=== PATIENT | male | born 2000 | race Two or more races ===

== ENCOUNTER 2024-11-03 00:26 | Emergency (ER) | payer BC, OTHER ==
[~2024-11-03] VITALS: Ht 177.8 cm; Wt 88.2 kg
[2024-11-03 00:58] VITALS: TEMP 97.3
--- NOTE | 2024-11-03 02:11 | DVH ---
CLINICAL INDICATION: RULE OUT FOREIGN BODY PLANTAR ASPECT TECHNIQUE: XY L FOOT 3 VIEW XRAY Comparison: None FINDINGS/IMPRESSION: : There is no evidence of acute fracture or dislocation. Moderate plantar soft tissue swelling noted subjacent to the metatarsals without evidence of retained radiodense foreign body. Soft tissues are otherwise unremarkable.
[2024-11-03] MEDS ORDERED: IBUP-1456 PO (02:25)
[2024-11-03] MEDS ORDERED: AUG875T PO (02:25)
--- NOTE | 2024-11-03 02:25 | ED.PDOC ---
History of Present Illness(SKN HPI Comments s C/C of possible toothpick, or stick in left foot. Pt states he was walking barefoot outside, and had an object lodged into LEFT foot. Noted abrasion and foreign body upon palpation. No active bleeding. VSS. NKDA. Pt A&O x4. Pt able to ambulate with slow steady gait. Chief Complaint: Foreign Body Time Seen by MD: 00:56 History of Present Illness: Nurses Notes, Medications, Allergies Allergies: Coded Allergies: NO KNOWN ALLERGIES (Unverified , 11/03/24) Home Meds Active Scripts Ibuprofen (Ibuprofen) 800 Mg Tab, 800 MG PO Q8HP PRN for 5 Days, #15 TAB Prov:CHICAFREIDAK CARPET LAYER HELPER 11/03/24 Amoxicillin & Pot Clavulanate (AUGMENTIN TABLET) 875 Mg Tb, 875 MG PO BID for 5 Days, #10 TAB Prov:CHICAGABBI Ray CARPET LAYER HELPER 11/03/24 Information Source: Patient Mode of Arrival: Ambulatory Past Medical History PAST MEDICAL HISTORY: Denies Surgical History: Denies all surgeries Family History Family History: Reviewed,noncontributory to illness, No family hx of Cancer, No family hx of DM, No family hx of Heart betty, No family hx of HTN, No family hx ofKidney betty, No family hx of Liver betty, No family hx of Lung betty, No family hx of Stroke Social History Smoker: Non-Smoker Alcohol: Denies ETOH Use Drugs: Denies Drug Use Constitutional: denies: chills, diaphoresis, fatigue, fever, malaise, sweats, weakness, others EENTM: denies: blurred vision, double vision, ear bleeding, ear discharge, ear drainage, ear pain, ear ringing, eye pain, eye redness, hearing loss, mouth pain, mouth swelling, nasal discharge, nose bleeding, nose congestion, nose pain, photophobia, tearing, throat pain, throat swelling, voice changes, others Respiratory: denies: cough, hemoptysis, orthopnea, SOB at rest, shortness of breath, SOB with excertion, stridor, wheezing, others Cardiovascular: denies: chest pain, dizzy spells, diaphoresis, Dyspnea on exertion, edema, irregular heart beat, left arm pain, lightheadedness, palpitations, PND, syncope, others Gastrointestinal: denies: abdomen distended, abdominal pain, blood streaked bowels, constipated, diarrhea, dysphagia, difficulty swallowing, hematemesis, melena, nausea, poor appetite, poor fluid intake, rectal bleeding, rectal pain, vomiting, others Genitourinary: denies: burning, dysuria, flank pain, frequency, hematuria, inco ntinence, penile discharge, penile sore, pain, testicle pain, testicle swelling, urgency, others Neurological: denies: dizziness, fainting, headache, left sided numbness, left sided weakness, numbness, paresthesia, pre-existing deficit, right sided numbness, right sided weakness, seizure, speech problems, tingling, tremors, weakness, others Musculoskeletal: denies: back pain, gout, joint pain, joint swelling, muscle pain, muscle stiffness, neck pain, others Integumetry: reports: wounds; denies: bruises, change in color, change in hair/nails, dryness, laceration, lesions, lumps, rash, others Allergic/Immunocompromised: denies: Difficulty Healing, Frequent Infections, Hives, Itching, others Hematologic/Lymphatic: denies: anemia, blood clots, easy bleeding, easy bruising, swollen glands, others Endocrine: denies: excessive hunger, excessive sweating, excessive thirst, excessive urination, flushing, intolerance to cold, intolerance to heat, unexplained weight gain, unexplained weight loss, others Psychiatric: denies: anxiety, bipolar disorder, depression, hopeless, panic disorder, schizophrenia, sleepless, suicidal, others Physical Exam General Appearance: No Apparent Distress, Normal HEENT: Pharynx Normal Neck: Full Range of Motion, Non-Tender, Normal Respiratory: Lungs Clear, No Respiratory Distress, Normal Breath Sounds Cardiovascular: No Edema, No JVD, No Murmur, No Gallop, Normal Peripheral Pulses, Regular Rate/Rhythm Breast Exam: Deferred Gastrointestinal: Non Tender, Soft Genitalia: Deferred Pelvic: Deferred Rectal: Deferred Extremities: Normal capillary refill, Normal inspection, Normal range of motion, Non-tender, No pedal edema Musculoskeletal : Apperance: Normal Neurologic: Alert, cio II-XII nml as Tested, No Motor Deficits, Normal Affect, Normal Mood, No Sensory Deficits Cerebellar Function: Normal Reflexes: Normal Skin: Dry, Normal Color, Warm, Wounds (SUPERFICIAL ABRASIONS NOTED PLANTAR ASPECT OF LEFT FOOT OVER BALL OF FOOT TENDERNESS ON PALPATION NOTED LUMP WITHOUT ANY DRAINAGE ERYTHEMA OR STREAKING STRENGTH SENSORY MOTION INTACT) Lymphatic: No Adenopathy Was a procedure done? Was a procedure done?: No Differential Diagnosis (INTG) Differential Diagnosis: Contusion, Fracture, Puncture Wound X-Ray, Labs, Meds, VS Vital Signs Date Time Temp Pulse Resp B/P (MAP) Pulse Ox O2 Delivery O2 Flow Rate FiO2 11/03/24 02:51 87 12 102/64 (77) 96 11/03/24 00:58 97.3 90 16 130/91 (104) 97 97.3 X-Ray, Labs, Meds, VS Comment LEFT FOOT X-RAY SHOWS NO ACUTE FRACTURES OSSEOUS LESIONS OR SUBLUXATIONS OR DISLOCATIONS NOTED MENTIONED OF NO FOREIGN BODY. WOUND DRESSED CLEANSED AND WRAPPED. SCRIPT TRIAL OF ANTIBIOTICS PROPHYLACTICALLY TWICE DAILY X5 DAYS ADVISED TAKE MEDICATIONS PRESCRIBED SIDE EFFECTS DISCUSSED PER ADVISED TO FOLLOW-UP WITH HIS PCP IN 2-3 DAYS NECESSARY CONSIDER FURTHER IMAGING SUCH CT OR MRI IF SINCE PERSIST. ER RETURN PRECAUTIONS GIVEN PATIENT INDICATES UNDERSTANDING AGREES WITH DISCHARGE PLAN OF CARE. Time of 1ST Reevaluation: 01:30 Reevaluation 1ST: Unchanged Time of 2ND Reevaluation: 02:18 Reevaluation 2ND: Improved Patient Education/Counseling: Diagnosis, Treatment, Prognosis, Need For Follow Up Family Education/Counseling: No Family Present Departure 1 Departure Time of Disposition: 02:22 Impression: Primary Impression: Wound of left foot Disposition: 01 HOME / SELF CARE / HOMELESS Condition: Stable e-Prescriptions Ibuprofen (Ibuprofen) 800 Mg Tab 800 MG PO Q8HP PRN for 5 Days, #15 TAB Prov: GABBI COTO 11/03/24 Amoxicillin & Pot Clavulanate (AUGMENTIN TABLET) 875 Mg Tb 875 MG PO BID for 5 Days, #10 TAB Prov: GABBI COTO 11/03/24 Discharged With: Self Critical Care Note Critical Care Time?: No Stability Stability form required: GABBI Mclaughlin November 03, 2024 02:25
[2024-11-03 02:51] VITALS: BP 102/64; PULSE 87; RESP 12; O2SAT 96
== END 2024-11-03 02:50 | disposition home or self-care (01) ==
LOC: ER 00:26
DX: S91.332A Puncture wound without foreign body, left foot, initial encounter (principal); X58.XXXA Exposure to other specified factors, initial encounter; Y93.01 Activity, walking, marching and hiking; Y92.89 Other specified places as the place of occurrence of the external cause; Y99.8 Other external cause status
CPT/HCPCS: 73630

== ENCOUNTER 2024-12-30 17:08 | Emergency (ER) | payer BC, OTHER ==
[~2024-12-30] VITALS: Ht 177.8 cm; Wt 90.8 kg
--- NOTE | 2024-12-30 18:08 | ED.PDOC ---
Musculoskeletal HPI Comments HPI: Poor Historian. 24-year-old male presents to emergency department for evaluation of right ankle pain status post twisting his ankle while at work today. 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 He has been walking on his foot since then. Injury happened approximately at 2:45 p.m. today. Denies any other pain anywhere else in his body or any other acute symptoms. Past Medical History: Denies any Past Surgical History: Denies any Vitals: Temperature 99.2 F pulse rate of 99, respiratory 18, blood pressure 128/80, pulse ox 95% on room air REVIEW OF SYSTEMS: CONSTITUTIONAL: Denies acute: fever, diaphoresis, chills, generalized weakness. HEAD: Denies acute: headache, photophobia Eyes: Denies acute: Double vision, vision loss, eye pain, eye discharge. EARS: Denies acute: tinnitus, hearing loss, ear discharge, ear pain, THROAT: Denies acute: sore throat, swelling, difficulty swallowing , pain with swallowing, change in voice. NECK: Denies acute: neck pain, neck swelling, stiff neck. HEART: Denies acute : chest pain, palpitations, LUNGS: Denies acute: SOB, wheezing, cough, hemoptysis ABDOMEN: Denies acute: abdominal pain, Nausea, Vomiting, diarrhea, melena , hematemesis, hematochezia SKIN: Denies acute: rash, redness, lesions, itchiness. EXTREMITIES: Denies acute: calf pain, numbness, tingling, weakness, Denies acute: Low back pain. Neuro: Denies acute: focal neurological deficit, motor or sensory focal neurological deficit, tremors, seizure like activity, confusion, dizziness, change in mental status, loss of bowel or bladder function, cauda equina like symptoms. : Denies acute: dysuria, hematuria, flank pain, increase in urinary frequency. PSYCH: Denies acute: hallucination, suicidal ideation, homicidal ideation. PHYSICAL EXAM: General: -----mild---acute distress, awake and alert. Head: normocephalic, atraumatic. Neck: supple, trachea is midline, no swelling. Throat: Normal phonation. Eyes:, no erythema, no purulent discharge, no proptosis, no icterus. Heart: regular rate, regular rhythm, no significant murmur appreciated. Lungs: no apparent respiratory distress, Able to speak in full sentences. No wheezing, no rhonchi, no crackles. No stridors Clear to auscultation bilaterally. Abdomen: non tender to palpation, non distended, soft, no guarding, no rebound, + bowel sounds. Neuro: Awake, Alert, oriented to name, self, situation, follows commands GCS=15. Speech is normal. Skin: no petechia, no purpura, no cyanosis, non-pale, not jaundice. Lower extremities: --no - Pitting edema no deformity, , no calf TTP. Makes eye contact. moves all four extremities. Face: no apparent facial droop. Ambulating in the ED independently. Pedal pulses are palpable. Patient of the area of pain: Right ankle lateral malleoli swelling and focal tenderness to palpation. Pedal pulses palpable. Patient is neurovascularly intact in the affected extremity. Decreased range of motion secondary to right ankle pain. No erythema or apparent deformity. Patient states he has been ambulating on his leg since the injury ED COURSE: DISCLAIMER: This medical document was created using an electronic medical record system with voice recognition software and computerized dictation system. Although this document has been carefully reviewed, there might still be some phonetic and typographical errors. Occasional wrong-word or "sound-alike" substitutions may have occurred due to the inherent limitations of voice recognition software. These areas are purely typographical due to imperfections of the software programs and do not reflect any compromise in the patient's medical care. Please read the chart carefully and recognize, using context, where these substitutions have occurred. Chief Complaint: Lower Extremity Time Seen by MD: 17:45 Primary Care Provider: UNKNOWN Allergies: Coded Allergies: NO KNOWN ALLERGIES (Unverified , 11/03/24) Information Source: Patient Mode of Arrival: Ambulatory Location: Right Past Medical History PAST MEDICAL HISTORY: Denies Surgical History: Denies all surgeries Family History Family History: Reviewed,noncontributory to illness, No family hx of Cancer, No family hx of DM, No family hx of Heart betty, No family hx of HTN, No family hx ofKidney betty, No family hx of Liver betty, No family hx of Lung betty, No family hx of Stroke Social History Smoker: Non-Smoker Alcohol: Denies ETOH Use Drugs: Denies Drug Use Was a procedure done? Was a procedure done?: No Differential Diagnosis EXT Differential Diagnosis: Fracture X-Ray, Labs, Meds, VS Vital Signs Date Time Temp Pulse Resp B/P (MAP) Pulse Ox O2 Delivery O2 Flow Rate FiO2 12/30/24 19:55 99.2 99 18 128/80 (96) 99 99.2 12/30/24 19:55 99 18 99 Room Air 12/30/24 17:26 99.2 99 18 128/80 (96) 95 99.2 Current Medications Medications (Trade) Dose Ordered Sig/Helen Route Start Time Stop Time Status Last Admin Acetaminophen/ Hydrocodone Bitart ([place] 5/325MG Tab) 1 tab ONCE ONCE PO 12/30/24 19:30 12/30/24 19:31 DC 12/30/24 19:31 [place] [address] Ph: [phone] DIAGNOSTIC IMAGING Diagnostic Imaging Report : [id number] Signed PATIENT: TORRI HOUSE ACCT: [id number] UNIT: [id number] : 2000 LOC: ER ROOM / BED: / AGE / SEX: 24 / M ADM STATUS: REG ER SERVICE 04 ORDERING PHYSICIAN: TEENA PARISI DO PROCEDURE(s): RANKL - R ANKLE 3 VIEW REASON: pain/swelling/injury ORDER NUMBER(s): [id number], ACCESSION NUMBER(s): [id number] CLINICAL INDICATION: pain/swelling/injury TECHNIQUE: 3 radiographic views of the right ankle were obtained. Comparison: None FINDINGS/IMPRESSION: Soft tissue swelling noted over the malleolus with minimally displaced horizontal fracture through the distal fibula. The visualized joint space is well maintained. The alignment is anatomical. There is no radiopaque foreign body. ATED BY: KIRSTIN COATS Jr., DO DICTATED DATE/TIME: 12/30/241900 SIGNED BY: KIRSTIN COATS Jr., SIGNED DATE/TIME: 07/08/25 1901 CC: Time of 1ST Reevaluation: 19:25 Reevaluation 1ST: Unchanged Patient Education/Counseling: Diagnosis, Treatment Family Education/Counseling: Other Departure 1 Departure Time of Disposition: :23 Impression: Primary Impression: Closed right ankle fracture Additional Impression: Fracture of distal end of fibula Disposition: HOME / SELF CARE / HOMELESS Condition: Stable Additional Instructions: Additional instructions: You MUST follow-up with your primary care/family doctor in 1 to 2 days. If you are unable to see your primary care/family doctor, please return to our emergency room for re-assessment and re-evaluation in 1 to 2 days. Return to the emergency room here in our facility or to the nearest ER [facility] if your symptoms change or worsen. CONSULTATIONS: you MUST Follow-up for consultation as soon as possible with: -orthopedic doctor in 1-2 days. Please call for appointment. You MUST call the consultants office yourself to make an appointment. You may need to arrange that through your insurance and/or your primary/family doctor. If you are unable to see the tanning consultant in 1 to 2 days, you must return to our emergency room (or any other ER of your choice) for re-assessment and re-[place] luation. Adequate fluid hydration. Leg elevation, nonweightbearing, use [id number] Tylenol ibuprofen with food for pain control as instructed. Below is a copy of your radiological report for follow up: [place] [address] Ph: [phone] DIAGNOSTIC IMAGING Diagnostic Imaging Report : [id number] Signed PATIENT: TORRI HOUSE ACCT: [id number] UNIT: [id number] : 2000 LOC: ER ROOM / BED: / AGE / SEX: 24 / M ADM STATUS: REG ER SERVICE [id number] ORDERING PHYSICIAN: TEENA PARISI DO PROCEDURE(s): RANKL - R ANKLE 3 VIEW REASON: pain/swelling/injury ORDER NUMBER(s): [id number], ACCESSION NUMBER(s): [id number] CLINICAL INDICATION: pain/swelling/injury TECHNIQUE: 3 radiographic views of the right ankle were obtained. Comparison: None FINDINGS/IMPRESSION: Soft tissue swelling noted over the malleolus with minimally displaced horizontal fracture through the distal fibula. The visualized joint space is well maintained. The alignment is anatomical. There is no radiopaque foreign body. ATED BY: KIRSTIN COATS Jr., DO DICTATED DATE/TIME: 12/30/241900 SIGNED BY: KIRSTIN COATS Jr., SIGNED DATE/TIME: 12/30/241900 CC: Discharged With: Self Critical Care Note Critical Care Time?: No I personally scribed for TEENA PARISI DO ([email or web address]) on 12/31/24 at 01:27. Electronically submitted by Indra Luz ([email or web address]). TEENA PARISI DO Dec 30, 2024 18:08
--- NOTE | 2024-12-30 19:04 | DVH ---
CLINICAL INDICATION: pain/swelling/injury TECHNIQUE: 3 radiographic views of the right ankle were obtained. Comparison: None FINDINGS/IMPRESSION: Soft tissue swelling noted over the malleolus with minimally displaced horizontal fracture through th e distal fibula. The visualized joint space is well maintained. The alignment is anatomical. There is no radiopaque foreign body.
[2024-12-30] MEDS: HYDROcodone-ACET 5/325MG TAB PO ONE (19:31)
[2024-12-30 19:55] VITALS: BP 128/80; PULSE 99; RESP 18; TEMP 99.2; O2SAT 99
== END 2024-12-30 20:10 | disposition home or self-care (01) ==
LOC: ER 17:13
DX: S82.891A Other fracture of right lower leg, initial encounter for closed fracture (principal); S82.831A Other fracture of upper and lower end of right fibula, initial encounter for closed fracture; X50.1XXA Overexertion from prolonged static or awkward postures, initial encounter; Y93.89 Activity, other specified; Y92.89 Other specified places as the place of occurrence of the external cause; Y99.8 Other external cause status
CPT/HCPCS: 29515; 73610